=== PATIENT | female | born 1940 | race Caucasian/White ===

== ENCOUNTER → 2016-08-10 | Outpatient (REF) | payer MEDICARE | LOC: M LAB REF 16:37 | PROVIDERS: ATTEND Nurse Practitioner Adult Health | DX: I47.1 Supraventricular tachycardia (principal) ==

== ENCOUNTER → 2016-08-30 | Outpatient (REF) | payer MEDICARE | LOC: M LAB REF 16:27 | PROVIDERS: ATTEND Nurse Practitioner Adult Health | DX: J45.998 Other asthma (principal); Z79.899 Other long term (current) drug therapy ==

== ENCOUNTER → 2017-02-09 | Outpatient (REF) | payer MEDICARE | LOC: M LAB REF 13:23 | PROVIDERS: ATTEND Nurse Practitioner Adult Health | DX: I47.1 Supraventricular tachycardia (principal); Z51.81 Encounter for therapeutic drug level monitoring; N39.0 Urinary tract infection, site not specified ==

== ENCOUNTER → 2017-06-02 | Outpatient (CLI) | payer MEDICARE ==
--- NOTE | 2017-06-05 18:34 | HOLTMON ---
[facility] Test Date: 2017-06-02 Pat Name: RAY DENIS Department: Room: - Gender: Manager Net: GARRETT MARINA : 1940 Requested By: Dalia Ponce Order Number: [id number] Reading MD: Ray Youngblood Interpretive Statements Underlying sinus rhythm with rate varying from 54-126, averaging 78 bpm. During this 48 hours there was a single isolated PVCs and 14 isolated PVCs. No significant bradyarrhythmia or tachyarrhythmia. The patient reported a single diary entry "very tired/restless last lightheaded" and the associated strip at this time shows sinus rhythm at 70 bpm. Electronically Signed On 06-05-2017 18:33:57 EST by Ray Youngblood
== END ==
LOC: M EKG 12:57
PROVIDERS: ATTEND Internal Medicine Cardiovascular Disease
DX: R00.2 Palpitations (principal); R00.0 Tachycardia, unspecified

== ENCOUNTER → 2017-08-14 | Outpatient (REF) | payer MEDICARE | LOC: M LAB REF 13:11 | DX: I49.8 Other specified cardiac arrhythmias (principal) | CPT/HCPCS: 80162 ==

== ENCOUNTER → 2017-08-24 | Outpatient (REF) | payer MEDICARE | LOC: M LAB REF 16:38 | DX: N39.0 Urinary tract infection, site not specified (principal) | CPT/HCPCS: 87186 ==

== ENCOUNTER → 2017-09-21 | Outpatient (REF) | payer MEDICARE | LOC: M LAB REF 13:05 | DX: N39.0 Urinary tract infection, site not specified (principal) | CPT/HCPCS: 87186 ==

== ENCOUNTER → 2018-02-13 | Outpatient (REF) | payer MEDICARE ==
[2018-02-13 13:19] LABS: DIGOXIN LEVEL 1.7 NG/ML (0.5-2.0)
== END ==
LOC: M LAB REF 12:15
DX: I49.8 Other specified cardiac arrhythmias (principal)
CPT/HCPCS: 80162

== ENCOUNTER → 2018-03-19 | Outpatient (REF) | payer MEDICARE ==
[2018-03-19 19:13] LABS: AMYLASE 62 U/L (25-115)
[2018-03-19 19:13] LABS: LIPASE 156 U/L (73-393)
== END ==
LOC: M LAB REF 16:46
DX: I49.8 Other specified cardiac arrhythmias (principal); R10.9 Unspecified abdominal pain
CPT/HCPCS: 82150

== ENCOUNTER → 2018-04-09 | Outpatient (CLI) | payer MEDICARE | LOC: M RAD 07:41 | DX: R10.11 Right upper quadrant pain (principal) | CPT/HCPCS: J2805 ==

== ENCOUNTER → 2018-08-07 | Outpatient (REF) | payer MEDICARE | LOC: M LAB REF 12:17 | PROVIDERS: ATTEND Nurse Practitioner Adult Health | DX: I49.8 Other specified cardiac arrhythmias (principal) ==

== ENCOUNTER → 2019-02-13 | Outpatient (REF) | payer MEDICARE | LOC: M LAB REF 12:27 | PROVIDERS: ATTEND Nurse Practitioner Adult Health | DX: I49.8 Other specified cardiac arrhythmias (principal) ==

== ENCOUNTER → 2019-02-27 | Outpatient (CLI) | payer MEDICARE ==
[~2019-02-27] MED LIST: E-Z-GAS II EFFERVESCENT PACKET (SODIUM BICARB./CITRIC ACID/SIMETHICONE) As Ordered ONE; E-Z-HD 98% w/w 340GM SUSP BTL As Ordered ONE; E-Z-PAQUE 96% w/w SUSP 176GM BTL As Ordered ONE
--- NOTE | 2019-02-27 19:32 | REP ---
UPPER GI AIR CONTRAST The procedure was performed under the direct supervision of Dr. Bolden. The images were reviewed with Dr. Bolden. The case finisher film shows no organomegaly or pathological masses. The test gas pattern is nonspecific. There are degenerative changes of the spine. There is levoscoliosis. There are vascular calcifications identified. The patient is status post left hip arthroplasty. Liquid barium and gas producing granules and given in the erect position as well as liquid barium in the prone oblique position in order to perform a double contrast upper GI examination. The oral and pharyngeal stages of deglutition are unremarkable. There are esophageal transport there are marked tertiary waves demonstrated. There is a large fixed hiatal hernia. There is gastroesophageal reflux demonstrated to above the level of the juana. The stomach hi are normally aligned. The rugal folds are smooth and regular. There is no gastritis neoplasm or ulcer disease. In the duodenal bulb there is a barium collection with surrounding edema consistent with a duodenal ulcer. The visualized portion of the proximal small bowel appears normal in course and caliber. Impression: 1. Esophageal dysmotility 2. Large fixed hiatal hernia. There is gastroesophageal reflux demonstrated to above the level of the juana. 3. There is a barium collection with surrounding edema in the duodenum consistent with a duodenal ulcer. 1.3 minutes of fluoroscopy time was utilized for this procedure. Reviewed by DAVID Gardner 02/27/2019 05:05 P Electronically Signed by Raudel Bolden MD 02/27/2019 07:23 P
== END ==
LOC: M RAD 09:47
PROVIDERS: ATTEND Internal Medicine Gastroenterology
DX: K30 Functional dyspepsia (principal); K21.9 Gastro-esophageal reflux disease without esophagitis; K44.9 Diaphragmatic hernia without obstruction or gangrene

== ENCOUNTER → 2019-04-12 | Outpatient (REF) | payer MEDICARE | LOC: M LAB REF 16:53 | PROVIDERS: ATTEND Nurse Practitioner Adult Health | DX: K21.9 Gastro-esophageal reflux disease without esophagitis (principal); K57.30 Diverticulosis of large intestine without perforation or abscess without bleeding; N81.6 Rectocele ==

== ENCOUNTER → 2020-03-12 | Outpatient (REF) | payer MEDICARE | LOC: M LAB REF 09:37 | PROVIDERS: ATTEND Nurse Practitioner Adult Health | DX: I49.8 Other specified cardiac arrhythmias (principal) ==

== ENCOUNTER → 2020-05-01 | Outpatient (REF) | payer MEDICARE | LOC: M LAB REF 16:33 | PROVIDERS: ATTEND Nurse Practitioner Adult Health | DX: Z79.899 Other long term (current) drug therapy (principal) ==

== ENCOUNTER → 2020-05-12 | Outpatient (REF) | payer MEDICARE | LOC: M LAB REF 16:10 | PROVIDERS: ATTEND Nurse Practitioner Adult Health | DX: K21.9 Gastro-esophageal reflux disease without esophagitis (principal); E61.2 Magnesium deficiency ==

== ENCOUNTER → 2020-06-12 | Outpatient (REF) | payer MEDICARE ==
[2020-06-12 17:13] LABS: FERRITIN 28 NG/ML (8-252); IRON (FE) 65 UG/DL (50-170); PERCENT SATURATION 19.8 % (13.2-45.0); TOTAL IRON BINDING CAPACITY 329 UG/DL (250-450); TOTAL PROTEIN 6.6 GM/DL (6.4-8.2)
[2020-06-12 17:23] LABS: HEPATITIS B SURFACE ANTIBODY NEGATIVE (POSITIVE)
[2020-06-12 17:31] LABS: INR 0.95; PROTHROMBIN TIME 12.9 SECONDS (12.5-14.3)
[2020-06-12 17:34] LABS: HEPATITIS B SURFACE ANTIGEN NEGATIVE (NEGATIVE)
[2020-06-12 18:01] LABS: HEPATITIS C VIRUS ABY INDEX 0.1 INDEX (<0.8)
[2020-06-12 18:04] LABS: HEPATITIS A ANTIBODY IGM NEGATIVE (NEGATIVE)
[2020-06-15 12:15] LABS: ALBUMIN 3.85 GM/DL (3.29-5.55); ALBUMIN % 58.4 % (55.8-66.1); ALPHA-1-GLOBULIN % 4.1 % (2.9-4.9); ALPHA-1-GLOBULINS 0.27 GM/DL (0.17-0.41); ALPHA-2-GLOBULINS 0.81 GM/DL (0.42-0.99); ALPHA-2-GLOBULINS % 12.2 % (7.1-11.8); BETA-1-GLOBULINS 0.42 GM/DL (0.28-0.60); BETA-1-GLOBULINS % 6.4 % (4.7-7.2); BETA-2-GLOBULINS 0.34 GM/DL (0.19-0.55); BETA-2-GLOBULINS % 5.1 % (3.2-6.5); GAMMA GLOBULIN % 13.8 % (11.1-18.8); GAMMA GLOBULINS 0.91 GM/DL (0.65-1.58)
[2020-06-16 17:06] LABS: ALPHA 1 ANTITRYPSIN 141 mg/dL (101-187); ANTI-MITOCHONDRIAL ANTIBODY <20.0 Units (0.0-20.0); ANTI-SMOOTH MUSCLE ANTIBODY 8 Units (0-19); ANTINUCLEAR ANTIBODIES DIRECT Negative (Negative); CERULOPLASMIN 23.9 mg/dL (19.0-39.0); HEPATITIS A IgG TOTAL Positive (Negative); LIVER-KIDNEY MICROSOMAL ABY <20.1 Units (0.0-20.0); TISSUE TRANSGLUTAMINASE IgA <2 U/mL (0-3)
== END ==
LOC: M LAB REF 16:32
PROVIDERS: ATTEND Nurse Practitioner Adult Health
DX: R94.5 Abnormal results of liver function studies (principal); K57.30 Diverticulosis of large intestine without perforation or abscess without bleeding; K21.9 Gastro-esophageal reflux disease without esophagitis; D50.9 Iron deficiency anemia, unspecified

== ENCOUNTER → 2020-07-01 | Outpatient (REF) | payer MEDICARE | LOC: M LAB REF 16:18 | PROVIDERS: ATTEND Nurse Practitioner Adult Health | DX: R94.5 Abnormal results of liver function studies (principal) ==

== ENCOUNTER → 2020-09-29 | Outpatient (REF) | payer MEDICARE | LOC: M LAB REF 16:21 | PROVIDERS: ATTEND Nurse Practitioner Adult Health | DX: I49.8 Other specified cardiac arrhythmias (principal) ==

== ENCOUNTER → 2021-05-12 | Outpatient (REF) | payer MEDICARE ==
[2021-05-12 17:26] LABS: DIGOXIN LEVEL 1.1 NG/ML (0.5-2.0); PHOSPHORUS LEVEL 4.1 MG/DL (2.5-4.9)
== END ==
LOC: M LAB REF 16:22
PROVIDERS: ATTEND Nurse Practitioner Adult Health
DX: I49.8 Other specified cardiac arrhythmias (principal)

== ENCOUNTER → 2021-05-14 | Outpatient (CLI) | payer MEDICARE ==
[~2021-05-14] MED LIST changes: -E-Z-GAS II EFFERVESCENT PACKET (SODIUM BICARB./CITRIC ACID/SIMETHICONE) As Ordered ONE; -E-Z-HD 98% w/w 340GM SUSP BTL As Ordered ONE; -E-Z-PAQUE 96% w/w SUSP 176GM BTL As Ordered ONE; +ISOVUE-370 76% 100ML VIAL As Ordered ONE
--- NOTE | 2021-05-14 10:56 | REP ---
INDICATION: ABN UPTAKE OF TRACER MEDIASTIMUM-STRESS TEST. COMPARISON: None. TECHNIQUE: 3 mm axial images were obtained through the chest following the infusion of 75 cc of Isovue 370 FINDINGS: The upper and mid lung sigala are clear. At both lung bases there are linear areas of increased density consistent with scarring, subsegmental atelectasis or minimal pneumonia. No effusion is evident. In the mediastinum no enlarged lymph nodes are noted however the wall of the esophagus appears thickened and endoscopy or a barium esophagram is recommended to exclude a mass. No definite abnormality is noted in the partially visualized upper abdomen. IMPRESSION: Changes at both lung bases of questionable significance. 2. The wall of the esophagus appears to be thickened in the region of the mediastinum and follow-up evaluation of the esophagus is suggested. <Electronically signed by Ray Artis > 05/14/21 2103
== END ==
LOC: M RAD 09:53
PROVIDERS: ATTEND Nurse Practitioner Adult Health
DX: R91.8 Other nonspecific abnormal finding of lung field (principal); J98.4 Other disorders of lung; K22.89 Other specified disease of esophagus
CPT/HCPCS: 71260; Q9967

== ENCOUNTER → 2021-11-12 | Outpatient (REF) | payer MEDICARE ==
[2021-11-12 16:04] LABS: C REACTIVE PROTEIN QUANTITATIV < 0.30 MG/DL (0.00-0.30)
== END ==
LOC: M LAB REF 15:22
PROVIDERS: ATTEND Internal Medicine
DX: I12.9 Hypertensive chronic kidney disease with stage 1 through stage 4 chronic kidney disease, or unspecified chronic kidney disease (principal)

== ENCOUNTER → 2022-04-19 | Outpatient (REF) | payer MEDICARE | LOC: M LAB REF 16:09 | PROVIDERS: ATTEND Nurse Practitioner Adult Health | DX: E78.2 Mixed hyperlipidemia (principal); Z79.899 Other long term (current) drug therapy ==

== ENCOUNTER → 2022-08-30 | Outpatient (REF) | payer MEDICARE ==
[2022-08-30 17:41] LABS: C REACTIVE PROTEIN QUANTITATIV < 0.40 MG/DL (<1.0)
[2022-08-30 17:42] LABS: DIGOXIN LEVEL 1.1 NG/ML (0.8-2.0); RHEUMATOID FACTOR QUANT 9.1 IU/ML (<14)
[2022-09-01 12:08] LABS: ANTINUCLEAR ANTIBODIES DIRECT Negative (Negative)
== END ==
LOC: M LAB REF 16:23
PROVIDERS: ATTEND Internal Medicine
DX: I47.1 Supraventricular tachycardia (principal); R51.9 Headache, unspecified; M81.0 Age-related osteoporosis without current pathological fracture; I42.9 Cardiomyopathy, unspecified

== ENCOUNTER → 2022-11-23 | Outpatient (REF) | payer MEDICARE | LOC: M LAB REF 16:23 | PROVIDERS: ATTEND Nurse Practitioner Adult Health | DX: I42.9 Cardiomyopathy, unspecified (principal) ==

== ENCOUNTER → 2023-10-16 | Outpatient (CLI) | payer MEDICARE | LOC: M WHC 10:18 | PROVIDERS: ATTEND Nurse Practitioner Adult Health | DX: M81.0 Age-related osteoporosis without current pathological fracture (principal); Z13.820 Encounter for screening for osteoporosis ==

== ENCOUNTER → 2023-10-24 | Outpatient (REF) | payer MEDICARE | LOC: M LAB REF 12:39 | PROVIDERS: ATTEND Nurse Practitioner Adult Health | DX: E56.9 Vitamin deficiency, unspecified (principal) ==

== ENCOUNTER → 2023-10-24 | Outpatient (CLI) | payer MEDICARE | LOC: M PLAIMG 14:02 | PROVIDERS: ATTEND Internal Medicine | DX: R51.9 Headache, unspecified (principal); G93.89 Other specified disorders of brain; E56.9 Vitamin deficiency, unspecified ==

== ENCOUNTER → 2024-01-11 | Outpatient (CLI) | payer MEDICARE | LOC: M RAD 09:54 | PROVIDERS: ATTEND Internal Medicine Gastroenterology | DX: R94.5 Abnormal results of liver function studies (principal); K76.0 Fatty (change of) liver, not elsewhere classified; R93.2 Abnormal findings on diagnostic imaging of liver and biliary tract ==

== ENCOUNTER → 2024-08-27 | Outpatient (CLI) | payer MEDICARE | LOC: M WHC 09:32 | PROVIDERS: ATTEND Internal Medicine Gastroenterology | DX: R94.5 Abnormal results of liver function studies (principal); N28.89 Other specified disorders of kidney and ureter; K80.20 Calculus of gallbladder without cholecystitis without obstruction ==

== ENCOUNTER → 2024-09-11 | Outpatient (CLI) | payer MEDICARE | LOC: M PLAIMG 10:14 | PROVIDERS: ATTEND Nurse Practitioner Adult Health | DX: D41.01 Neoplasm of uncertain behavior of right kidney (principal); R16.0 Hepatomegaly, not elsewhere classified ==

== ENCOUNTER → 2024-09-30 | Outpatient (REF) | payer MEDICARE | LOC: M LAB REF 12:15 | PROVIDERS: ATTEND Internal Medicine | DX: I49.8 Other specified cardiac arrhythmias (principal) ==

== ENCOUNTER → 2024-10-09 | Outpatient (CLI) | payer MEDICARE ==
[2024-10-09 12:55] LABS: CALCIUM LEVEL 9.1 MG/DL (8.3-10.6); CREATININE FOR GFR 0.81 MG/DL (0.55-1.30); GLOMERULAR FILTRATION RATE 71.5 (>32); HEMATOCRIT 41.4 % (36.0-47.0); HEMOGLOBIN 12.4 g/dl (12.0-15.5); INR 0.97; MEAN CORPUSCULAR HEMOGLOBIN 24.4 pg (27.0-33.0); MEAN CORPUSCULAR VOLUME 81.3 fl (80.0-96.0); PARTIAL THROMBOPLASTIN TIME 31.7 SECONDS (24.8-34.2); PLATELET COUNT, AUTOMATED 471 10^3/uL (150-450); POTASSIUM SERUM 4.2 MMOL/L (3.5-5.1); PROTHROMBIN TIME 13.1 SECONDS (12.5-14.5); RED BLOOD COUNT 5.09 10^6/uL (4.00-5.40); WHITE BLOOD COUNT 11.7 10^3/uL (4.0-10.0)
== END ==
LOC: M PLALAB 10:17
PROVIDERS: ATTEND Nurse Practitioner Family
DX: Z01.818 Encounter for other preprocedural examination (principal); R91.8 Other nonspecific abnormal finding of lung field

== ENCOUNTER → 2024-10-09 | Outpatient (REF) | payer MEDICARE ==
[2024-10-09 12:18] LABS: INR 0.92; PARTIAL THROMBOPLASTIN TIME 29.1 SECONDS (24.8-34.2); PROTHROMBIN TIME 12.7 SECONDS (12.5-14.5)
== END ==
LOC: M LAB REF 11:55
PROVIDERS: ATTEND Internal Medicine
DX: Z01.818 Encounter for other preprocedural examination (principal)

== ENCOUNTER 2024-10-29 06:01 | Inpatient (IN) | payer MEDICARE ==
[2024-10-29] VITALS (8 sets, daily range): BP systolic 122–138; BP diastolic 67–81; TEMP 96.8–97.2; O2SAT 72–97
[~2024-10-29] VITALS: Ht 160 cm; Wt 66.7 kg
[~2024-10-29 06:01] MED LIST changes: +ALBU8.5H INH; +ATOR1TAB19 PO; +BAYE81TA10 PO; +BREO1INH3 INH; +CALC1TAB30 PO; +CVS500CA5 PO; +DIGO0.123 PO; -ISOVUE-370 76% 100ML VIAL As Ordered ONE; +LOSA100T5 PO; +OMEP-173 PO; +TRAM50TA2 PO; +VITA-168 PO; +VITA100065 PO
[2024-10-29] MEDS ORDERED: LR 1,000 ML IV SCH (06:20)
[2024-10-29] MEDS: NS (Normal Saline) 0.9% 1,000 ML IV SCH (07:30)
[2024-10-29] MEDS ORDERED: PERCOCET 5MG/325MG TAB PO PRN (07:30)
[2024-10-29] MEDS: ceFAZolin SOD 2 GM IV ONCE IV ONE (07:40)
[2024-10-29] MEDS ORDERED: OCUVTAB4 PO (07:50)
[2024-10-29] MEDS ORDERED: HOME MED LIST COMPLETE! XX SCH (07:50)
[2024-10-29] MEDS ORDERED: DENO60SY2 SC (07:50)
[2024-10-29] MEDS ORDERED: TRAM50TA2 PO (07:50)
[2024-10-29] MEDS ORDERED: ROCURONIUM BROMIDE 50MG/5ML VIAL As Ordered ONE (08:24)
[2024-10-29] MEDS ORDERED: ONDANSETRON 4MG 2ML VIAL As Ordered ONE (08:24)
[2024-10-29] MEDS ORDERED: propofoL 200 MG/20 ML VIAL As Ordered ONE (08:24)
[2024-10-29] MEDS ORDERED: METOCLOPRAMIDE INJ 10MG/2ML VIAL As Ordered ONE (08:24)
[2024-10-29] MEDS ORDERED: LIDOCAINE 2% 100MG/5ML SDV (FOR ANES.) As Ordered ONE (08:24)
[2024-10-29] MEDS ORDERED: HYDROmorphone HCL 2MG/ML 1ML VIAL As Ordered ONE (08:24)
[2024-10-29] MEDS ORDERED: fentaNYL 250 MCG/5 ML INJECTION As Ordered ONE (08:24)
[2024-10-29] MEDS ORDERED: ETOMIDATE INJ 20MG/10ML VIAL As Ordered ONE (08:24)
[2024-10-29] MEDS ORDERED: SUGAMMADEX SODIUM 500 MG/5 ML VIAL (BRIDION) As Ordered ONE (08:24)
[2024-10-29] MEDS ORDERED: SEVOFLURANE INHAL SOLN 250 ML BTL As Ordered ONE (08:24)
[2024-10-29] MEDS ORDERED: ACETAMINOPHEN 1000MG/100ML IV BAG As Ordered ONE (08:24)
[2024-10-29] MEDS ORDERED: MIDAZOLAM INJ 2MG/2ML VIAL As Ordered ONE (08:24)
[2024-10-29] MEDS ORDERED: GLYCOPYRROLATE INJ 0.2 MG/ML 2 ML VIAL As Ordered ONE (08:28)
[2024-10-29] MEDS ORDERED: ePHEDrine SULFATE 25 MG/5 ML(5MG/ML) SYRINGE As Ordered ONE (08:46)
[2024-10-29] MEDS: DOCUSATE SODIUM 100MG CAPSULE PO SCH (09:00)
[2024-10-29] MEDS ORDERED: CALCIUM CHLORIDE 10% 1 GM/10 ML SYR As Ordered ONE (11:00)
[2024-10-29] MEDS ORDERED: HYDROMORPHONE HCL 0.5 MG/ 0.5 ML SYRINGE IV PRN (11:20)
[2024-10-29] MEDS: LR 1,000 ML IV SCH (11:20)
[2024-10-29] MEDS ORDERED: oxyCODONE 5MG TAB PO PRN (11:20)
[2024-10-29] MEDS ORDERED: ONDANSETRON 4MG 2ML VIAL IV PRN (11:20)
[2024-10-29] MEDS ORDERED: FUROSEMIDE 100MG/10ML VIAL As Ordered ONE (11:20)
[2024-10-29] MEDS ORDERED: fentaNYL 100 MCG/2 ML INJECTION IV PRN (11:20)
[2024-10-29] MEDS: LIDOCAINE 1% SDV 30ML VIAL As Ordered ONE (11:40)
[2024-10-29 12:35] LABS: HEMATOCRIT 37.4 % (36.0-47.0); HEMOGLOBIN 11.5 g/dl (12.0-15.5); MEAN CORPUSCULAR HEMOGLOBIN 24.7 pg (27.0-33.0); MEAN CORPUSCULAR HGB CONC 30.7 g/dl (32.0-36.5); MEAN CORPUSCULAR VOLUME 80.3 fl (80.0-96.0); PLATELET COUNT, AUTOMATED 372 10^3/uL (150-450); RED BLOOD COUNT 4.66 10^6/uL (4.00-5.40); WHITE BLOOD COUNT 13.1 10^3/uL (4.0-10.0)
[2024-10-29 13:02] LABS: CALCIUM LEVEL 8.9 MG/DL (8.3-10.6); CREATININE FOR GFR 0.93 MG/DL (0.55-1.30); GLOMERULAR FILTRATION RATE 60.6 (>32); MAGNESIUM LEVEL 2.5 MG/DL (1.8-2.4); POTASSIUM SERUM 3.6 MMOL/L (3.5-5.1)
[2024-10-29] MEDS: ceFAZolin SOD 1 GM in DEXTROSE 5% (D5W) ADV/MINI-BAG 50 ML IV SCH (17:09)
[2024-10-29] MEDS: ACETAMINOPHEN 325 MG TAB PO PRN (17:09)
[2024-10-29] MEDS: ONDANSETRON 4MG 2ML VIAL IV PRN (21:05)
[2024-10-29] MEDS: OMEPRAZOLE 20MG CAP PO SCH (21:05)
[2024-10-29] MEDS: PERCOCET 5MG/325MG TAB PO PRN (21:05)
[2024-10-29] MEDS: ATORVASTATIN 10 MG TAB PO SCH (21:05)
[2024-10-30] VITALS (10 sets, daily range): BP systolic 115–124; BP diastolic 59–79; TEMP 97.2–97.7; O2SAT 92–96
[2024-10-30 05:49] LABS: HEMATOCRIT 32.3 % (36.0-47.0); MEAN CORPUSCULAR HEMOGLOBIN 24.8 pg (27.0-33.0); PLATELET COUNT, AUTOMATED 352 10^3/uL (150-450); RED BLOOD COUNT 4.04 10^6/uL (4.00-5.40); WHITE BLOOD COUNT 10.4 10^3/uL (4.0-10.0)
[2024-10-30 06:17] LABS: CALCIUM LEVEL 7.3 MG/DL (8.3-10.6); CREATININE FOR GFR 1.08 MG/DL (0.55-1.30); GLOMERULAR FILTRATION RATE 50.7 (>32); POTASSIUM SERUM 3.4 MMOL/L (3.5-5.1)
[2024-10-30] MEDS ORDERED: BREO INH SCH (09:00)
[2024-10-30] MEDS ORDERED: traMADol 50 MG TAB PO PRN (09:05)
[2024-10-30] MEDS: LOSARTAN 50MG TABLET PO SCH (09:27)
[2024-10-30] MEDS: traMADol 50 MG TAB PO PRN (09:29)
[2024-10-30] MEDS: DIGOXIN 0.125 MG TAB PO SCH (09:30)
[2024-10-30] MEDS: CALCIUM GLUCONATE 1,000 MG in DEXTROSE 5% (D5W) MINI-BAG PLU 100 ML IV ONE (10:54)
[2024-10-30] MEDS: POTASSIUM CHLORIDE 10MEQ SR TABLET PO ONE (10:55)
[2024-10-30] MEDS ORDERED: ONDANSETRON 4MG 2ML VIAL IV PRN (13:30)
[2024-10-30] MEDS ORDERED: LR 1,000 ML IV SCH (14:00)
[2024-10-30] MEDS: LR 1,000 ML IV ONE (14:02)
[2024-10-30] MEDS ORDERED: FUROSEMIDE 20MG/2ML VIAL IV ONE (14:20)
[2024-10-30] MEDS: FUROSEMIDE 20MG/2ML VIAL IV ONE (14:43)
[2024-10-30] MEDS: BISACODYL 10MG SUPP PR ONE (14:43)
[2024-10-30 15:50] LABS: KETONE, URINE AUTO RFX NEGATIVE (NEGATIVE); LEUKOCYTE ESTERASE UR AUTO RFX NEGATIVE (NEGATIVE); MUCUS, URINE RFX SMALL (NEGATIVE); NITRITE, URINE AUTO RFX NEGATIVE (NEGATIVE); RBC, URINE AUTO RFX 5 /HPF (0-3); SQUAM EPITHELIAL CELL UR AURFX 0 /HPF (0-6); WBC, URINE AUTO RFX 1 /HPF (0-3)
[2024-10-30] MEDS: BISACODYL 10MG SUPP PR SCH (20:35)
[2024-10-31] VITALS (26 sets, daily range): BP systolic 105–127; BP diastolic 51–88; TEMP 97.1–98.6; O2SAT 89–99
[2024-10-31 05:43] LABS: HEMATOCRIT 31.8 % (36.0-47.0); MEAN CORPUSCULAR HEMOGLOBIN 24.9 pg (27.0-33.0); MEAN CORPUSCULAR HGB CONC 31.4 g/dl (32.0-36.5); MEAN CORPUSCULAR VOLUME 79.3 fl (80.0-96.0); PLATELET COUNT, AUTOMATED 348 10^3/uL (150-450); RED BLOOD COUNT 4.01 10^6/uL (4.00-5.40); WHITE BLOOD COUNT 12.5 10^3/uL (4.0-10.0)
[2024-10-31 06:05] LABS: CALCIUM LEVEL 7.9 MG/DL (8.3-10.6); CREATININE FOR GFR 1.27 MG/DL (0.55-1.30); GLOMERULAR FILTRATION RATE 41.7 (>32); POTASSIUM SERUM 3.8 MMOL/L (3.5-5.1)
[2024-10-31 06:52] LABS: ABG BASE EXCESS 4.8 (-2.0-2.0); ABG HCO3 29.2 MMOL/L (22.0-26.0); ABG O2 SATURATION 97.8 % (95.0-99.0); ABG PARTIAL PRESSURE CO2 42.5 mmHg (35.0-45.0); ABG PARTIAL PRESSURE O2 102.1 mmHg (75.0-100.0); ABG STANDARD HCO3 28.8 MMOL/L. (22.0-26.0); ABG TOTAL CO2 30.5 MMOL/L (23.0-31.0); ABG pH (ARTERIAL) 7.455 UNITS (7.350-7.450)
[2024-10-31] MEDS ORDERED: LORazepam 2 MG/ML 1ML VIAL As Ordered ONE (06:56)
[2024-10-31] MEDS: LORazepam 2 MG/ML 1ML VIAL IV STA (07:01)
[2024-10-31 07:09] LABS: VENOUS BASE EXCESS -1.8 (-2.0-2.0); VENOUS HCO3 22.5 MMOL/L (23.0-27.0); VENOUS O2 SATURATION 94.9 % (60.0-80.0); VENOUS PARTIAL PRESSURE CO2 36.8 mmHg (38.0-50.0); VENOUS PH 7.405 UNITS (7.330-7.430); VENOUS STANDARD HCO3 22.9 MMOL/L; VENOUS TOTAL CO2 23.7 MMOL/L (24.0-28.0)
[2024-10-31 08:09] LABS: MAGNESIUM LEVEL 2.2 MG/DL (1.8-2.4); PHOSPHORUS LEVEL 2.8 MG/DL (2.4-5.1); PROLACTIN 17.12 NG/ML
[2024-10-31] MEDS ORDERED: DEXTROSE 50% 50ML SYRINGE IV PRN (08:15)
[2024-10-31] MEDS ORDERED: GLUCAGON INJ 1MG VIAL SC PRN (08:15)
[2024-10-31] MEDS ORDERED: GLUCOSE 4 GM CHEW PO PRN (08:15)
[2024-10-31 08:46] LABS: PROCALCITONIN 0.2 ng/ml
[2024-10-31] MEDS: levETIRAcetam INJection 1,000 MG in IV 1 EA IV ONE (09:43)
[2024-10-31] MEDS ORDERED: MORPHINE 2 MG/ML 1ML VIAL IV PRN (14:00)
[2024-10-31] MEDS: D5W/0.45% SODIUM CHLORIDE 1,000 ML IV SCH (15:15)
[2024-10-31 15:48] LABS: CHOLESTEROL RISK RATIO 3.48 (<5); HDL CHOLESTEROL 36.2 MG/DL (>40); LDL CHOLESTEROL 59.8 MG/DL (<100); NON-HDL-C 89.8 MG/DL
[2024-10-31] MEDS: LR 1,000 ML IV ONE (16:14)
[2024-10-31 16:50] LABS: CK-MB VALUE MASS 5.2 NG/ML (<3.6); MB/CK RELATIVE INDEX 3.05 (< OR =4)
[2024-10-31] MEDS: ASPIRIN 300 MG SUPP PR SCH (17:03)
[2024-10-31] MEDS ORDERED: levETIRAcetam INJection 1,000 MG in IV 1 EA IV SCH (19:00)
[2024-10-31] MEDS: ATORVASTATIN 20 MG TAB PO SCH (20:00)
[2024-10-31 21:07] LABS: CK-MB VALUE MASS 2.9 NG/ML (<3.6)
[2024-10-31 21:08] LABS: MB/CK RELATIVE INDEX 2.47 (< OR =4)
[2024-10-31] MEDS: levETIRAcetam INJection 750 MG in D5W 100 ML IV SCH (21:28)
[2024-11-01] VITALS (30 sets, daily range): BP systolic 107–135; BP diastolic 51–65; TEMP 98.4–99.8; O2SAT 92–100
[2024-11-01 03:23] LABS: HEMATOCRIT 31.3 % (36.0-47.0); HEMOGLOBIN 9.9 g/dl (12.0-15.5); MEAN CORPUSCULAR HGB CONC 31.6 g/dl (32.0-36.5); PLATELET COUNT, AUTOMATED 308 10^3/uL (150-450); RED BLOOD COUNT 3.96 10^6/uL (4.00-5.40); WHITE BLOOD COUNT 10.8 10^3/uL (4.0-10.0)
[2024-11-01 03:46] LABS: CK-MB VALUE MASS 1.8 NG/ML (<3.6)
[2024-11-01 03:47] LABS: ALBUMIN 2.1 G/DL (3.2-5.2); BILIRUBIN,DIRECT 0.2 MG/DL (<0.4); BILIRUBIN,TOTAL 0.5 MG/DL (0.3-1.2); CALCIUM LEVEL 7.8 MG/DL (8.3-10.6); CREATININE FOR GFR 1.09 MG/DL (0.55-1.30); GLOMERULAR FILTRATION RATE 50.1 (>32); POTASSIUM SERUM 3.4 MMOL/L (3.5-5.1)
[2024-11-01 03:53] LABS: MB/CK RELATIVE INDEX 1.93 (< OR =4)
[2024-11-01 09:03] LABS: CK-MB VALUE MASS 2.5 NG/ML (<3.6)
[2024-11-01 09:14] LABS: MB/CK RELATIVE INDEX 3.33 (< OR =4)
[2024-11-01] MEDS: KCL 10MEQ/100ML SWI (KRUN) 10 MEQ in IV 1 EA IV SCH (13:06)
[2024-11-01] MEDS: ENOXAPARIN 40MG/0.4ML SYRINGE (J1650 PER 10MG) SC SCH (14:26)
[2024-11-01 15:02] LABS: CK-MB VALUE MASS 1.2 NG/ML (<3.6)
[2024-11-01] MEDS: ADVAIR HFA 230/21MCG INHALER INH SCH (20:09)
[2024-11-02] VITALS (30 sets, daily range): BP systolic 129–141; BP diastolic 55–84; TEMP 97.5–99.5; O2SAT 65–98
[2024-11-02 06:44] LABS: CALCIUM LEVEL 7.2 MG/DL (8.3-10.6); CREATININE FOR GFR 0.87 MG/DL (0.55-1.30); GLOMERULAR FILTRATION RATE 65.7 (>32); POTASSIUM SERUM 3.9 MMOL/L (3.5-5.1)
[2024-11-02 07:27] LABS: HEMOGLOBIN 10.2 g/dl (12.0-15.5); MEAN CORPUSCULAR HEMOGLOBIN 24.5 pg (27.0-33.0); MEAN CORPUSCULAR HGB CONC 30.9 g/dl (32.0-36.5); MEAN CORPUSCULAR VOLUME 79.3 fl (80.0-96.0); PLATELET COUNT, AUTOMATED 350 10^3/uL (150-450); RED BLOOD COUNT 4.16 10^6/uL (4.00-5.40); WHITE BLOOD COUNT 9.8 10^3/uL (4.0-10.0)
[2024-11-02] MEDS: ASPIRIN 81MG ENTERIC TABLET PO SCH (13:46)
[2024-11-03] VITALS (20 sets, daily range): BP systolic 116–148; BP diastolic 56–73; TEMP 97–98.4; O2SAT 90–97
[2024-11-03 06:18] LABS: HEMATOCRIT 30.6 % (36.0-47.0); HEMOGLOBIN 9.5 g/dl (12.0-15.5); MEAN CORPUSCULAR HEMOGLOBIN 24.3 pg (27.0-33.0); MEAN CORPUSCULAR VOLUME 78.3 fl (80.0-96.0); PLATELET COUNT, AUTOMATED 363 10^3/uL (150-450); RED BLOOD COUNT 3.91 10^6/uL (4.00-5.40); WHITE BLOOD COUNT 9.9 10^3/uL (4.0-10.0)
[2024-11-03 06:43] LABS: CALCIUM LEVEL 7.6 MG/DL (8.3-10.6); CREATININE FOR GFR 1.09 MG/DL (0.55-1.30); GLOMERULAR FILTRATION RATE 50.1 (>32); POTASSIUM SERUM 3.7 MMOL/L (3.5-5.1)
[2024-11-03] MEDS: levETIRAcetam 250MG TABLET (KEPPRA) PO SCH (10:02)
[2024-11-04 04:00] VITALS: BP 142/68; TEMP 97.9; O2SAT 94
[2024-11-04 06:06] LABS: HEMATOCRIT 31.1 % (36.0-47.0); HEMOGLOBIN 9.7 g/dl (12.0-15.5); MEAN CORPUSCULAR HEMOGLOBIN 24.6 pg (27.0-33.0); MEAN CORPUSCULAR HGB CONC 31.2 g/dl (32.0-36.5); MEAN CORPUSCULAR VOLUME 78.7 fl (80.0-96.0); PLATELET COUNT, AUTOMATED 395 10^3/uL (150-450); RED BLOOD COUNT 3.95 10^6/uL (4.00-5.40); WHITE BLOOD COUNT 9.3 10^3/uL (4.0-10.0)
[2024-11-04 06:34] LABS: CALCIUM LEVEL 7.7 MG/DL (8.3-10.6); CREATININE FOR GFR 1.13 MG/DL (0.55-1.30); POTASSIUM SERUM 4.1 MMOL/L (3.5-5.1)
[2024-11-04 08:30] VITALS: BP 132/65; TEMP 98.4; O2SAT 94
[2024-11-04 12:00] VITALS: BP 122/57; TEMP 97.3; O2SAT 96
[2024-11-04] MEDS: CALCIUM GLUCONATE 1,000 MG in DEXTROSE 5% (D5W) MINI-BAG PLU 100 ML IV ONE (13:09)
[2024-11-04 19:45] VITALS: BP 150/76; TEMP 97.9; O2SAT 96
[2024-11-05 04:01] VITALS: BP 149/75; TEMP 97.7; O2SAT 93
[2024-11-05 05:59] LABS: HEMATOCRIT 32.5 % (36.0-47.0); HEMOGLOBIN 9.9 g/dl (12.0-15.5); MEAN CORPUSCULAR HEMOGLOBIN 24.3 pg (27.0-33.0); MEAN CORPUSCULAR HGB CONC 30.5 g/dl (32.0-36.5); MEAN CORPUSCULAR VOLUME 79.7 fl (80.0-96.0); PLATELET COUNT, AUTOMATED 439 10^3/uL (150-450); RED BLOOD COUNT 4.08 10^6/uL (4.00-5.40); WHITE BLOOD COUNT 9.3 10^3/uL (4.0-10.0)
[2024-11-05 06:13] LABS: CALCIUM LEVEL 8.1 MG/DL (8.3-10.6); CREATININE FOR GFR 1.05 MG/DL (0.55-1.30); GLOMERULAR FILTRATION RATE 52.4 (>32); POTASSIUM SERUM 4.2 MMOL/L (3.5-5.1)
[2024-11-05] MEDS ORDERED: ALBUTEROL 90 MCG/ACT 8GM HFA INHALER INH PRN (07:15)
[2024-11-05 12:00] VITALS: BP 142/70; TEMP 97.9; O2SAT 96
[2024-11-05] MEDS ORDERED: ATOR1TAB21 PO (14:31)
[2024-11-05] MEDS ORDERED: COLA100C5 PO (14:31)
[2024-11-05] MEDS ORDERED: BISA10SU PR (14:31)
[2024-11-05] MEDS ORDERED: KEPP250T5 PO (14:31)
== END 2024-11-05 16:30 | DRG 656 ==
LOC: M OR 06:01 → M MSPAV 13:20 → M PCU 10-31 07:00 → M MS5PR 11-03 18:11
PROVIDERS: ADMIT Urology; ATTEND Internal Medicine Nephrology
PROC: 8E0W4CZ Robotic Assisted Procedure of Trunk Region, Percutaneous Endoscopic Approach (ICD-10-PCS; 2024-10-29)
PROC: 0TT04ZZ Resection of Right Kidney, Percutaneous Endoscopic Approach (ICD-10-PCS; principal; 2024-10-29 07:30)
DX: D30.01 Benign neoplasm of right kidney (principal); I63.9 Cerebral infarction, unspecified; I47.10 Supraventricular tachycardia, unspecified; I50.22 Chronic systolic (congestive) heart failure; E87.20 Acidosis, unspecified; F05 Delirium due to known physiological condition; K91.89 Other postprocedural complications and disorders of digestive system; I25.10 Atherosclerotic heart disease of native coronary artery without angina pectoris; D64.9 Anemia, unspecified; R56.9 Unspecified convulsions; E83.51 Hypocalcemia; E87.6 Hypokalemia; Z66 Do not resuscitate; J45.909 Unspecified asthma, uncomplicated; R13.10 Dysphagia, unspecified; E83.41 Hypermagnesemia; I11.0 Hypertensive heart disease with heart failure; E78.5 Hyperlipidemia, unspecified; J44.9 Chronic obstructive pulmonary disease, unspecified; Z90.49 Acquired absence of other specified parts of digestive tract; Z90.79 Acquired absence of other genital organ(s); Z79.82 Long term (current) use of aspirin; Z79.899 Other long term (current) drug therapy

== ENCOUNTER 2024-11-05 15:21 | Inpatient (IN) | payer MEDICARE ==
[~2024-11-05] VITALS: Ht 160 cm; Wt 61.8 kg
[~2024-11-05 15:21] MED LIST changes: +ATOR1TAB21 PO; +BISA10SU PR; +COLA100C5 PO; +DENO60SY2 SC; +KEPP250T5 PO; +OCUVTAB4 PO
[2024-11-05] MEDS ORDERED: FLEET ENEMA PR PRN (16:10)
[2024-11-05] MEDS ORDERED: ONDANSETRON 4MG ORAL DISINTEGRATING TAB SL PRN (16:10)
[2024-11-05] MEDS ORDERED: MAALOX 30 ML SUSP *UDC PO PRN (16:10)
[2024-11-05] MEDS ORDERED: MOM 30ML SUSPENSION UDC PO PRN (16:10)
[2024-11-05] MEDS ORDERED: ALBUTEROL 90 MCG/ACT 8GM HFA INHALER INH PRN (16:10)
[2024-11-05 16:35] VITALS: BP 140/66; TEMP 98.7; O2SAT 94
[2024-11-05 20:00] VITALS: BP 149/66; TEMP 99.1; O2SAT 95
[2024-11-05] MEDS: ADVAIR HFA 230/21MCG INHALER INH SCH (20:00)
[2024-11-05] MEDS: SENNA 8.6 MG TAB PO SCH (20:04)
[2024-11-05] MEDS: traZODone 50 MG TAB PO PRN (20:04)
[2024-11-05] MEDS: ATORVASTATIN 20 MG TAB PO SCH (20:04)
[2024-11-05] MEDS: ACETAMINOPHEN 500 MG TAB PO PRN (20:05)
[2024-11-06 05:00] VITALS: BP 134/63; TEMP 97; O2SAT 95
[2024-11-06 06:16] LABS: BASO # 0.1 10^3/uL (0.0-0.2); BASO % 0.6 % (0.0-1.0); EOS # 0.9 10^3/uL (0.0-0.5); EOS % 11.3 % (0.0-3.0); HEMATOCRIT 29.9 % (36.0-47.0); HEMOGLOBIN 9.2 g/dl (12.0-15.5); LYMPH # 2.3 10^3/uL (1.5-5.0); LYMPH % 27.3 % (24.0-44.0); MEAN CORPUSCULAR HEMOGLOBIN 24.5 pg (27.0-33.0); MEAN CORPUSCULAR HGB CONC 30.8 g/dl (32.0-36.5); MEAN CORPUSCULAR VOLUME 79.7 fl (80.0-96.0); MONO # 0.6 10^3/uL (0.0-0.8); MONO % 7.3 % (2.0-8.0); NEUTROPHILS # 4.4 10^3/uL (1.5-8.5); NEUTROPHILS % 52.8 % (36.0-66.0); PLATELET COUNT, AUTOMATED 404 10^3/uL (150-450); RED BLOOD COUNT 3.75 10^6/uL (4.00-5.40); WHITE BLOOD COUNT 8.3 10^3/uL (4.0-10.0)
[2024-11-06 06:53] LABS: ALBUMIN 1.9 G/DL (3.2-5.2); BILIRUBIN,TOTAL 0.5 MG/DL (0.3-1.2); CALCIUM LEVEL 7.9 MG/DL (8.3-10.6); CREATININE FOR GFR 1.14 MG/DL (0.55-1.30); GLOMERULAR FILTRATION RATE 47.5 (>32); POTASSIUM SERUM 4.3 MMOL/L (3.5-5.1); TOTAL PROTEIN 4.7 G/DL (5.7-8.2)
[2024-11-06] MEDS: ASPIRIN 81MG ENTERIC TABLET PO SCH (07:35)
[2024-11-06] MEDS: DIGOXIN 0.125 MG TAB PO SCH (07:35)
[2024-11-06] MEDS: OMEPRAZOLE 20MG CAP PO SCH (07:36)
[2024-11-06] MEDS: ENOXAPARIN 40MG/0.4ML SYRINGE (J1650 PER 10MG) SC SCH (07:36)
[2024-11-06 12:00] VITALS: BP 154/67; TEMP 98.7; O2SAT 95
[2024-11-06] MEDS: NYSTATIN 500,000U/5ML SUSP UDC PO SCH (13:00)
[2024-11-06 20:00] VITALS: BP 157/70; TEMP 98.2; O2SAT 99
[2024-11-06] MEDS: CARVedilol 3.125 MG TAB PO SCH (20:08)
[2024-11-07 04:42] VITALS: BP 135/63; TEMP 97.9; O2SAT 98
[2024-11-07 07:01] LABS: INR 1.05
[2024-11-07 12:00] VITALS: BP 143/66; TEMP 98.4; O2SAT 96
[2024-11-07 20:00] VITALS: BP 130/60; TEMP 98.8; O2SAT 95
[2024-11-08 06:28] LABS: HEMATOCRIT 30.8 % (36.0-47.0); HEMOGLOBIN 9.5 g/dl (12.0-15.5); MEAN CORPUSCULAR HEMOGLOBIN 24.9 pg (27.0-33.0); MEAN CORPUSCULAR HGB CONC 30.8 g/dl (32.0-36.5); MEAN CORPUSCULAR VOLUME 80.6 fl (80.0-96.0); PLATELET COUNT, AUTOMATED 449 10^3/uL (150-450); RED BLOOD COUNT 3.82 10^6/uL (4.00-5.40); WHITE BLOOD COUNT 9.2 10^3/uL (4.0-10.0)
[2024-11-08 12:14] VITALS: BP 143/63; TEMP 97.6; O2SAT 94
[2024-11-08 20:00] VITALS: BP 162/74; TEMP 98.5; O2SAT 96
[2024-11-09 04:00] VITALS: BP 137/64; TEMP 98.5; O2SAT 96
[2024-11-09 11:56] VITALS: BP 136/63; TEMP 98.4; O2SAT 93
[2024-11-09 11:59] VITALS: BP 172/80; TEMP 97.6; O2SAT 97
[2024-11-09 20:00] VITALS: BP 149/67; TEMP 99.1; O2SAT 98
[2024-11-10 04:00] VITALS: BP 159/72; TEMP 98.1; O2SAT 95
[2024-11-10 12:41] VITALS: BP 135/87; TEMP 98.6; O2SAT 96
[2024-11-10 20:04] VITALS: BP 145/66; TEMP 98.2; O2SAT 94
[2024-11-11 04:17] VITALS: BP 148/60; TEMP 98.5; O2SAT 94
[2024-11-11 05:59] LABS: HEMATOCRIT 32.2 % (36.0-47.0); HEMOGLOBIN 9.8 g/dl (12.0-15.5); MEAN CORPUSCULAR HEMOGLOBIN 24.2 pg (27.0-33.0); MEAN CORPUSCULAR HGB CONC 30.4 g/dl (32.0-36.5); MEAN CORPUSCULAR VOLUME 79.5 fl (80.0-96.0); PLATELET COUNT, AUTOMATED 463 10^3/uL (150-450); RED BLOOD COUNT 4.05 10^6/uL (4.00-5.40); WHITE BLOOD COUNT 8.6 10^3/uL (4.0-10.0)
[2024-11-11 06:07] LABS: INR 0.98; PROTHROMBIN TIME 13.3 SECONDS (12.5-14.5)
[2024-11-11 12:00] VITALS: BP 184/72; TEMP 98.4; O2SAT 95
[2024-11-11 13:17] LABS: CALCIUM LEVEL 8.5 MG/DL (8.3-10.6); CREATININE FOR GFR 1.19 MG/DL (0.55-1.30); GLOMERULAR FILTRATION RATE 45.1 (>32); POTASSIUM SERUM 4.6 MMOL/L (3.5-5.1)
[2024-11-11] MEDS: BISACODYL 5MG TAB PO PRN (14:16)
[2024-11-11] MEDS: SIMETHICONE 80MG CHEW TAB PO PRN (14:16)
[2024-11-11] MEDS: **hydrALAZINE HCL** 25 MG TAB PO PRN (14:17)
[2024-11-11] MEDS ORDERED: METOCLOPRAMIDE 10MG TAB PO ONE (16:00)
[2024-11-11] MEDS: BISACODYL 5MG TAB PO ONE (16:07)
[2024-11-11] MEDS ORDERED: oxyCODONE 5MG TAB PO PRN (16:35)
[2024-11-11] MEDS ORDERED: METOCLOPRAMIDE INJ 10MG/2ML VIAL IV ONE (16:40)
[2024-11-11] MEDS ORDERED: TRAZ-252 PO (17:16)
[2024-11-11] MEDS ORDERED: ONDA-282 SL (17:16)
[2024-11-11] MEDS ORDERED: ACET-683 PO (17:16)
[2024-11-11] MEDS ORDERED: ATOR80TA59 PO (17:16)
[2024-11-11] MEDS ORDERED: KEPP250T5 PO (17:16)
[2024-11-11] MEDS ORDERED: ASPI81TAEC PO (17:16)
[2024-11-11] MEDS ORDERED: CARV3.12 PO (17:16)
[2024-11-11] MEDS: NS (Normal Saline) 0.9% 1,000 ML IV SCH (17:20)
[2024-11-11] MEDS: METOCLOPRAMIDE INJ 10MG/2ML VIAL IV STA (17:20)
[2024-11-11] MEDS: BISACODYL 10MG SUPP PR PRN (18:44)
[2024-11-11 20:00] VITALS: BP 161/72; TEMP 99.9; O2SAT 94
[2024-11-12 00:40] VITALS: BP 130/56; TEMP 98.6; O2SAT 93
[2024-11-12 04:00] VITALS: BP 151/67; TEMP 97.6; O2SAT 95
[2024-11-12 07:37] LABS: BASO # 0.1 10^3/uL (0.0-0.2); BASO % 0.2 % (0.0-1.0); HEMOGLOBIN 10.7 g/dl (12.0-15.5); LYMPH # 1.3 10^3/uL (1.5-5.0); LYMPH % 3.4 % (24.0-44.0); MEAN CORPUSCULAR HEMOGLOBIN 24.8 pg (27.0-33.0); MEAN CORPUSCULAR HGB CONC 31.5 g/dl (32.0-36.5); MEAN CORPUSCULAR VOLUME 78.9 fl (80.0-96.0); MONO % 5.3 % (2.0-8.0); NEUTROPHILS # 33.7 10^3/uL (1.5-8.5); NEUTROPHILS % 89.2 % (36.0-66.0); PLATELET COUNT, AUTOMATED 553 10^3/uL (150-450); RED BLOOD COUNT 4.31 10^6/uL (4.00-5.40)
[2024-11-12 07:47] LABS: WHITE BLOOD COUNT 37.8 10^3/uL (4.0-10.0)
[2024-11-12 08:05] LABS: CALCIUM LEVEL 8.2 MG/DL (8.3-10.6); CREATININE FOR GFR 1.09 MG/DL (0.55-1.30); GLOMERULAR FILTRATION RATE 50.1 (>32); POTASSIUM SERUM 4.3 MMOL/L (3.5-5.1)
[2024-11-12 08:18] VITALS: BP 155/67
[2024-11-12] MEDS ORDERED: NS (Normal Saline) 0.9% 1,000 ML IV SCH (08:35)
[2024-11-12 08:58] LABS: BASO # 0.1 10^3/uL (0.0-0.2); BASO % 0.2 % (0.0-1.0); EOS # 0.1 10^3/uL (0.0-0.5); EOS % 0.2 % (0.0-3.0); HEMATOCRIT 35.3 % (36.0-47.0); HEMOGLOBIN 11.1 g/dl (12.0-15.5); LYMPH # 1.4 10^3/uL (1.5-5.0); LYMPH % 3.2 % (24.0-44.0); MEAN CORPUSCULAR HEMOGLOBIN 24.4 pg (27.0-33.0); MEAN CORPUSCULAR HGB CONC 31.4 g/dl (32.0-36.5); MEAN CORPUSCULAR VOLUME 77.6 fl (80.0-96.0); MONO # 2.3 10^3/uL (0.0-0.8); MONO % 5.4 % (2.0-8.0); NEUTROPHILS # 38.2 10^3/uL (1.5-8.5); NEUTROPHILS % 89.5 % (36.0-66.0); PLATELET COUNT, AUTOMATED 490 10^3/uL (150-450); RED BLOOD COUNT 4.55 10^6/uL (4.00-5.40)
[2024-11-12 09:00] LABS: WHITE BLOOD COUNT 42.6 10^3/uL (4.0-10.0)
[2024-11-12] MEDS ORDERED: SUCRALFATE SUSP 1GM/10ML UD PO ONE (10:00)
[2024-11-12] MEDS ORDERED: PANTOPRAZOLE 40MG VIAL IV ONE (10:00)
== END 2024-11-12 09:45 | disposition short-term general hospital (02) | DRG 65 ==
LOC: M PM&R 16:35
PROVIDERS: ADMIT Physical Medicine & Rehabilitation; ATTEND Physical Medicine & Rehabilitation
DX: I63.9 Cerebral infarction, unspecified (principal); I47.10 Supraventricular tachycardia, unspecified; I50.22 Chronic systolic (congestive) heart failure; F05 Delirium due to known physiological condition; B37.0 Candidal stomatitis; R53.1 Weakness; J45.909 Unspecified asthma, uncomplicated; I11.0 Hypertensive heart disease with heart failure; E78.5 Hyperlipidemia, unspecified; G47.00 Insomnia, unspecified; J44.9 Chronic obstructive pulmonary disease, unspecified; K21.9 Gastro-esophageal reflux disease without esophagitis; M81.0 Age-related osteoporosis without current pathological fracture; G47.33 Obstructive sleep apnea (adult) (pediatric); K59.00 Constipation, unspecified; Z74.1 Need for assistance with personal care; Z74.09 Other reduced mobility; R13.10 Dysphagia, unspecified; Z90.5 Acquired absence of kidney; Z66 Do not resuscitate; Z90.49 Acquired absence of other specified parts of digestive tract; Z96.649 Presence of unspecified artificial hip joint; Z87.891 Personal history of nicotine dependence; Z79.899 Other long term (current) drug therapy; R56.9 Unspecified convulsions; Z79.82 Long term (current) use of aspirin

== ENCOUNTER 2024-11-12 08:53 | Inpatient (IN) | payer MEDICARE ==
[~2024-11-12] VITALS: Ht 160 cm; Wt 63.1 kg
[~2024-11-12 08:53] MED LIST changes: +ACET-683 PO; +ASPI81TAEC PO; +ATOR80TA59 PO; +CARV3.12 PO; +ONDA-282 SL; +TRAZ-252 PO
[2024-11-12] MEDS ORDERED: VANCOMYCIN HCL 1,000 MG in IV FLUID PLACE HOLDER 1 EA IV SCH (09:05)
[2024-11-12 09:16] VITALS: BP 155/70; TEMP 98.3; O2SAT 94
[2024-11-12 09:49] LABS: HEMATOCRIT 34.2 % (36.0-47.0); HEMOGLOBIN 10.8 g/dl (12.0-15.5); MEAN CORPUSCULAR HEMOGLOBIN 24.8 pg (27.0-33.0); MEAN CORPUSCULAR HGB CONC 31.6 g/dl (32.0-36.5); MEAN CORPUSCULAR VOLUME 78.4 fl (80.0-96.0); PLATELET COUNT, AUTOMATED 535 10^3/uL (150-450); RED BLOOD COUNT 4.36 10^6/uL (4.00-5.40)
[2024-11-12 09:57] LABS: WHITE BLOOD COUNT 40.5 10^3/uL (4.0-10.0)
[2024-11-12] MEDS: PANTOPRAZOLE SODIUM 40 MG in D5W 50 ML IV SCH (10:21)
[2024-11-12] MEDS: PANTOPRAZOLE 40MG VIAL IV ONE (10:21)
[2024-11-12 10:25] LABS: ALBUMIN 2.6 G/DL (3.2-5.2); ANISOCYTOSIS 1+; BILIRUBIN,TOTAL 0.7 MG/DL (0.3-1.2); CALCIUM LEVEL 8.1 MG/DL (8.3-10.6); CREATININE FOR GFR 1.08 MG/DL (0.55-1.30); GLOMERULAR FILTRATION RATE 50.7 (>32); HYPOCHROMASIA 1+; LYMPHOCYTES 2 % (16-44); MICROCYTOSIS 1+; MONOCYTES 7 % (0-5); NEUTROPHILS 88 % (28-66); PLATELET ESTIMATE INCREASED (NORMAL); POTASSIUM SERUM 4.5 MMOL/L (3.5-5.1); TOTAL PROTEIN 5.7 G/DL (5.7-8.2)
[2024-11-12 10:31] LABS: PROCALCITONIN 7.48 ng/ml
[2024-11-12 10:38] LABS: C REACTIVE PROTEIN QUANTITATIV 19.35 MG/DL (<1.0); ERYTHROCYTE SEDIMENTATION RATE 71 mm/hr (0-30)
[2024-11-12] MEDS ORDERED: GLUCOSE 4 GM CHEW PO PRN (10:50)
[2024-11-12] MEDS ORDERED: GLUCAGON INJ 1MG VIAL SC PRN (10:50)
[2024-11-12] MEDS ORDERED: DEXTROSE 50% 50ML SYRINGE IV PRN (10:50)
[2024-11-12] MEDS ORDERED: LEVETIRACETAM IV SCH (10:55)
[2024-11-12] MEDS ORDERED: NALOXONE INJ 0.4MG/1ML VIAL IV PRN (11:10)
[2024-11-12] MEDS ORDERED: MORPHINE 2 MG/ML 1ML VIAL IV PRN (11:10)
[2024-11-12] MEDS: MEROPENEM INJ 1 GM in IV 1 EA IV SCH ×2 (11:15→23:37)
[2024-11-12 11:41] VITALS: BP 162/70; TEMP 98.5; O2SAT 95
[2024-11-12] MEDS: ONDANSETRON 4MG 2ML VIAL IV PRN (11:43)
[2024-11-12] MEDS: MORPHINE 4 MG/ML 1ML VIAL IV ONE (11:45)
[2024-11-12] MEDS ORDERED: SUCRALFATE SUSP 1GM/10ML UD PO SCH (12:00)
[2024-11-12] MEDS: D5W/0.45% SODIUM CHLORIDE 1,000 ML IV SCH (12:09)
[2024-11-12] MEDS: VANCOMYCIN HCL 1,500 MG, VIAL MATE ADAPTER 1 EACH in NS 500 ML IV SCH (12:42)
[2024-11-12] MEDS ORDERED: LIDOCAINE 1% MDV 20ML VIAL As Ordered ONE (14:38)
[2024-11-12] MEDS ORDERED: HOME MED LIST COMPLETE! XX SCH (15:45)
[2024-11-12 16:00] VITALS: BP 119/58; TEMP 98.1; O2SAT 96
[2024-11-12 19:33] VITALS: BP 120/57; TEMP 98.2; O2SAT 96
[2024-11-12] MEDS: levETIRAcetam INJection 750 MG in D5W 100 ML IV SCH (20:38)
[2024-11-12 23:58] VITALS: BP 124/60; TEMP 98.2; O2SAT 95
[2024-11-13 00:29] VITALS: BP 98/64
[2024-11-13 04:03] VITALS: BP 125/57; TEMP 97.7; O2SAT 93
[2024-11-13 06:24] LABS: APPEARANCE, URINE HAZY (CLEAR); BACTERIA, URINE AUTO 1+ (NEGATIVE); BILIRUBIN, URINE AUTO NEGATIVE (NEGATIVE); BLOOD, URINE BLOOD 1+ (NEGATIVE); COLOR, URINE YELLOW (YELLOW); GLUCOSE, URINE (UA) AUTO NEGATIVE (NEGATIVE); KETONE, URINE AUTO NEGATIVE (NEGATIVE); LEUKOCYTE ESTERASE, URINE AUTO NEGATIVE (NEGATIVE); NITRITE, URINE AUTO NEGATIVE (NEGATIVE); PROTEIN, URINE AUTO 1+ mg/dL (NEGATIVE); RBC, URINE AUTO 1 /HPF (0-3); SPECIFIC GRAVITY URINE AUTO 1.017 (1.002-1.035); SQUAMOUS EPITHELIAL CELL UR AU 11 /HPF (0-6); UROBILINOGEN, URINE AUTO 0.2 mg/dL (0.0-2.0); WBC, URINE AUTO 9 /HPF (0-3)
[2024-11-13 07:37] VITALS: BP 114/56; TEMP 98.2; O2SAT 94
[2024-11-13 09:16] LABS: VANCOMYCIN RANDOM 11.9 UG/ML
[2024-11-13 09:17] LABS: CALCIUM LEVEL 7.2 MG/DL (8.3-10.6); CREATININE FOR GFR 1.25 MG/DL (0.55-1.30); GLOMERULAR FILTRATION RATE 42.5 (>32); POTASSIUM SERUM 4.2 MMOL/L (3.5-5.1)
[2024-11-13] MEDS: DIGOXIN INJ 0.5 MG/2 ML AMP IV SCH (09:21)
[2024-11-13 10:52] LABS: BASO # 0.1 10^3/uL (0.0-0.2); BASO % 0.2 % (0.0-1.0); EOS # 0.1 10^3/uL (0.0-0.5); EOS % 0.4 % (0.0-3.0); HEMATOCRIT 27.8 % (36.0-47.0); HEMOGLOBIN 8.5 g/dl (12.0-15.5); LYMPH # 1.6 10^3/uL (1.5-5.0); LYMPH % 6.4 % (24.0-44.0); MEAN CORPUSCULAR HEMOGLOBIN 24.4 pg (27.0-33.0); MEAN CORPUSCULAR HGB CONC 30.6 g/dl (32.0-36.5); MEAN CORPUSCULAR VOLUME 79.9 fl (80.0-96.0); MONO # 1.2 10^3/uL (0.0-0.8); MONO % 4.7 % (2.0-8.0); NEUTROPHILS # 21.5 10^3/uL (1.5-8.5); NEUTROPHILS % 87.6 % (36.0-66.0); PLATELET COUNT, AUTOMATED 417 10^3/uL (150-450); RED BLOOD COUNT 3.48 10^6/uL (4.00-5.40); WHITE BLOOD COUNT 24.6 10^3/uL (4.0-10.0)
[2024-11-13] MEDS ORDERED: VANCOMYCIN HCL 750 MG, VIAL MATE ADAPTER 1 EACH in NS 250 ML IV SCH (11:00)
[2024-11-13 11:06] LABS: PROCALCITONIN 7.44 ng/ml
[2024-11-13 11:19] LABS: C REACTIVE PROTEIN QUANTITATIV 26.28 MG/DL (<1.0)
[2024-11-13] MEDS: SUCRALFATE SUSP 1GM/10ML UD PO SCH (11:23)
[2024-11-13] MEDS: PIPERACILLIN/TAZOBACTAM SOD 3.375 GM in DEXTROSE 5% (D5W) ADV/MINI-BAG 50 ML IV SCH (11:23)
[2024-11-13] MEDS: PANTOPRAZOLE 40MG TAB (PROTONIX) PO SCH (11:23)
[2024-11-13] MEDS: LACTOBACILLUS ACIDOPHILUS CAP PO SCH (11:23)
[2024-11-13 11:40] LABS: ERYTHROCYTE SEDIMENTATION RATE 78 mm/hr (0-30)
[2024-11-13 15:45] VITALS: BP 154/68; TEMP 98.8; O2SAT 96
[2024-11-13 19:34] VITALS: BP 147/66; TEMP 98.6; O2SAT 96
[2024-11-13] MEDS: ATORVASTATIN 20 MG TAB PO SCH (20:00)
[2024-11-13] MEDS: levETIRAcetam 250MG TABLET (KEPPRA) PO SCH (20:01)
[2024-11-13 23:47] VITALS: BP 146/67; TEMP 98.8; O2SAT 94
[2024-11-14 04:07] VITALS: BP 142/63; TEMP 98.9; O2SAT 95
[2024-11-14 05:28] LABS: BASO # 0.1 10^3/uL (0.0-0.2); BASO % 0.4 % (0.0-1.0); EOS # 0.2 10^3/uL (0.0-0.5); EOS % 1.8 % (0.0-3.0); HEMATOCRIT 26.2 % (36.0-47.0); HEMOGLOBIN 8.1 g/dl (12.0-15.5); LYMPH # 1.3 10^3/uL (1.5-5.0); LYMPH % 9.7 % (24.0-44.0); MEAN CORPUSCULAR HEMOGLOBIN 24.5 pg (27.0-33.0); MEAN CORPUSCULAR HGB CONC 30.9 g/dl (32.0-36.5); MEAN CORPUSCULAR VOLUME 79.2 fl (80.0-96.0); MONO # 0.7 10^3/uL (0.0-0.8); MONO % 5.4 % (2.0-8.0); NEUTROPHILS # 10.7 10^3/uL (1.5-8.5); NEUTROPHILS % 82.2 % (36.0-66.0); PLATELET COUNT, AUTOMATED 454 10^3/uL (150-450); RED BLOOD COUNT 3.31 10^6/uL (4.00-5.40); WHITE BLOOD COUNT 13.1 10^3/uL (4.0-10.0)
[2024-11-14 05:45] LABS: CALCIUM LEVEL 7.4 MG/DL (8.3-10.6); CREATININE FOR GFR 1.25 MG/DL (0.55-1.30); GLOMERULAR FILTRATION RATE 42.5 (>32); POTASSIUM SERUM 4.1 MMOL/L (3.5-5.1)
[2024-11-14 08:25] VITALS: BP 158/70; TEMP 97.4; O2SAT 96
[2024-11-14 12:00] VITALS: BP 159/71; TEMP 98.2; O2SAT 95
[2024-11-14 16:00] VITALS: BP 127/67; TEMP 98.6; O2SAT 96
[2024-11-14 20:32] VITALS: BP 131/65; TEMP 98.4; O2SAT 97
[2024-11-15 03:57] VITALS: BP 133/64; TEMP 97.9; O2SAT 95
[2024-11-15 06:28] LABS: BASO # 0.1 10^3/uL (0.0-0.2); BASO % 0.6 % (0.0-1.0); EOS # 0.4 10^3/uL (0.0-0.5); HEMATOCRIT 27.8 % (36.0-47.0); HEMOGLOBIN 8.3 g/dl (12.0-15.5); LYMPH # 1.2 10^3/uL (1.5-5.0); LYMPH % 15.3 % (24.0-44.0); MEAN CORPUSCULAR HEMOGLOBIN 23.9 pg (27.0-33.0); MEAN CORPUSCULAR HGB CONC 29.9 g/dl (32.0-36.5); MEAN CORPUSCULAR VOLUME 79.9 fl (80.0-96.0); MONO # 0.5 10^3/uL (0.0-0.8); MONO % 6.9 % (2.0-8.0); NEUTROPHILS # 5.6 10^3/uL (1.5-8.5); NEUTROPHILS % 71.8 % (36.0-66.0); PLATELET COUNT, AUTOMATED 465 10^3/uL (150-450); RED BLOOD COUNT 3.48 10^6/uL (4.00-5.40); WHITE BLOOD COUNT 7.8 10^3/uL (4.0-10.0)
[2024-11-15 07:02] LABS: CREATININE FOR GFR 1.23 MG/DL (0.55-1.30); GLOMERULAR FILTRATION RATE 43.3 (>32)
[2024-11-15] MEDS ORDERED: BACI1CAP PO (10:14)
[2024-11-15] MEDS ORDERED: DIGO0.123 PO (10:14)
[2024-11-15] MEDS ORDERED: AMOX875T2 PO (10:14)
[2024-11-15] MEDS ORDERED: SPIR-10 PO (10:14)
[2024-11-15] MEDS ORDERED: ATOR80TA59 PO (10:14)
[2024-11-15] MEDS ORDERED: CORE3.12 PO (10:14)
[2024-11-15] MEDS ORDERED: ENTR1TAB PO (10:14)
[2024-11-15] MEDS ORDERED: CARA1TAB6 PO (10:17)
[2024-11-15] MEDS ORDERED: ASPI81TA26 PO (10:17)
[2024-11-15] MEDS ORDERED: PROT1TAB2 PO (10:17)
[2024-11-15] MEDS ORDERED: KEPP1TAB2 PO (10:17)
[2024-11-15 10:39] VITALS: BP 139/58
[2024-11-15] MEDS: CARVedilol 3.125 MG TAB PO SCH (10:39)
[2024-11-15] MEDS: SPIRONOLACTONE 25 MG TAB PO SCH (10:39)
[2024-11-15] MEDS: ENTRESTO 24-26MG TABLET (SACUBITRIL/VALSARTAN) PO SCH (10:39)
[2024-11-15] MEDS: ASPIRIN 81MG ENTERIC TABLET PO SCH (10:39)
[2024-11-15 12:00] VITALS: BP 158/71; TEMP 98.2; O2SAT 97
== END 2024-11-15 15:08 | disposition home health service (06) | DRG 438 ==
LOC: M PCU 09:16 → M MSPAV 11-14 15:54
PROVIDERS: ADMIT General Practice; ATTEND General Practice
PROC: 0F9430Z Drainage of Gallbladder with Drainage Device, Percutaneous Approach (ICD-10-PCS; principal; 2024-11-12 15:00)
DX: K85.10 Biliary acute pancreatitis without necrosis or infection (principal); A41.9 Sepsis, unspecified organism; I50.22 Chronic systolic (congestive) heart failure; D62 Acute posthemorrhagic anemia; K92.2 Gastrointestinal hemorrhage, unspecified; Z66 Do not resuscitate; G40.909 Epilepsy, unspecified, not intractable, without status epilepticus; Z86.73 Personal history of transient ischemic attack (TIA), and cerebral infarction without residual deficits; Z90.5 Acquired absence of kidney; J44.9 Chronic obstructive pulmonary disease, unspecified; E78.5 Hyperlipidemia, unspecified; I11.0 Hypertensive heart disease with heart failure; Z90.49 Acquired absence of other specified parts of digestive tract; Z90.79 Acquired absence of other genital organ(s); E86.0 Dehydration; Z79.82 Long term (current) use of aspirin; Z79.899 Other long term (current) drug therapy; K59.00 Constipation, unspecified

== ENCOUNTER → 2025-01-14 | Outpatient (CLI) | payer MEDICARE ==
[~2025-01-14] MED LIST changes: +AMOX875T2 PO; +ASPI81TA26 PO; +BACI1CAP PO; +CARA1TAB6 PO; +CORE3.12 PO; +ENTR1TAB PO; +ISOVUE-300 61% 100 ML VIAL IV STA; +KEPP1TAB2 PO; +LIDOCAINE 1% MDV 20 ML VIAL SC SCH; +PROT1TAB2 PO; +SPIR-10 PO
[2025-01-14 08:30] VITALS: BP 178/73; TEMP 97.2; O2SAT 96
== END ==
LOC: M IRPRO 08:10
PROVIDERS: ATTEND Surgery
DX: K81.0 Acute cholecystitis (principal)

== ENCOUNTER → 2025-03-04 | Outpatient (REF) | payer MEDICARE ==
[~2025-03-04] MED LIST changes: -ISOVUE-300 61% 100 ML VIAL IV STA; -LIDOCAINE 1% MDV 20 ML VIAL SC SCH
[2025-03-04 18:20] LABS: IRON (FE) 47.0 UG/DL (50-170)
[2025-03-04 18:21] LABS: PERCENT SATURATION 17.9 % (13.2-45.0)
== END ==
LOC: M LAB REF 17:40
PROVIDERS: ATTEND Internal Medicine
DX: D50.9 Iron deficiency anemia, unspecified (principal); I51.81 Takotsubo syndrome; I12.9 Hypertensive chronic kidney disease with stage 1 through stage 4 chronic kidney disease, or unspecified chronic kidney disease; N18.31 Chronic kidney disease, stage 3a

== ENCOUNTER → 2025-03-17 | Outpatient (CLI) | payer MEDICARE ==
[~2025-03-17] MED LIST changes: +ISOVUE-370 76% 100 ML VIAL As Ordered ONE
== END ==
LOC: M RAD 12:06
PROVIDERS: ATTEND Nurse Practitioner Adult Health
DX: R10.31 Right lower quadrant pain (principal); Z90.49 Acquired absence of other specified parts of digestive tract; K57.90 Diverticulosis of intestine, part unspecified, without perforation or abscess without bleeding; I25.10 Atherosclerotic heart disease of native coronary artery without angina pectoris; R93.3 Abnormal findings on diagnostic imaging of other parts of digestive tract
CPT/HCPCS: 74177; Q9967

== ENCOUNTER → 2025-05-26 | Outpatient (CLI) | payer MEDICARE, OTHER ==
[~2025-05-26] MED LIST changes: +GADOXETATE DISODIUM 2.5 MMOL/10 ML VIAL ONE; -ISOVUE-370 76% 100 ML VIAL As Ordered ONE
== END ==
LOC: M PLAIMG 14:23
PROVIDERS: ATTEND Internal Medicine Gastroenterology
DX: K83.8 Other specified diseases of biliary tract (principal); R94.5 Abnormal results of liver function studies; K81.0 Acute cholecystitis; R63.4 Abnormal weight loss
CPT/HCPCS: 74183; A9581